=== PATIENT | male | born 1965 | race Native Hawaiian/Other Pacific Islander ===

== ENCOUNTER 2020-01-04 20:00 | Emergency (ER) | payer OTHER ==
[~2020-01-04] VITALS: Ht 167.6 cm; Wt 84.8 kg
[2020-01-04 20:27] LABS: PLATELET COUNT 261 K/uL (142-355)
[2020-01-04 20:51] LABS: POTASSIUM 3.7 mmol/L (3.6-5.2)
[2020-01-04 22:08] VITALS: BP 112/77; TEMP 98.1
[2020-01-04] MEDS ORDERED: EUTHYROX88 MCG PO (23:37)
[2020-01-04] MEDS ORDERED: CLOZAPINE100 MG PO (23:41)
[2020-01-04] MEDS ORDERED: CLOZAPINE ODT150 MG PO (23:45)
[2020-01-04] MEDS ORDERED: DAILY VITE PO (23:47)
[2020-01-04] MEDS ORDERED: FURO20TA67 PO (23:49)
[2020-01-04] MEDS ORDERED: DOCU100C10 PO (23:54)
[2020-01-04] MEDS ORDERED: LORA0.5T17 PO (23:58)
[2020-01-05] MEDS ORDERED: PROPRANOLOL20 MG PO (00:02)
[2020-01-05] MEDS ORDERED: XARELTO20 MG PO ×2 (00:05→00:26)
[2020-01-05] MEDS ORDERED: FERROUS SULF325 M1 PO (00:39)
[2020-01-05] MEDS ORDERED: LAXATIVE5 M1 PO (01:16)
[2020-01-05] MEDS ORDERED: BISACODYL LAXAT10 MG RE (01:19)
[2020-01-05] MEDS ORDERED: 24HR ALLERGY R180 MG PO (01:22)
[2020-01-05] MEDS ORDERED: MAGNSUS68 PO (01:25)
[2020-01-05] MEDS ORDERED: TYLENOL325 MG PO (01:28)
[2020-01-05] MEDS ORDERED: GERI-LANTA PO (01:33)
[2020-01-05] MEDS ORDERED: PROMETHAZINE25 MG/M2 INJ (01:43)
[2020-01-05] MEDS ORDERED: BENADRYL A12.5 MG/5 PO (01:49)
[2020-01-05] MEDS ORDERED: SILTUSSIN DM PO (01:57)
[2020-01-05] MEDS ORDERED: KAOPECTATE262 MG/15 PO (02:05)
[2020-01-05] MEDS ORDERED: FLEET ENEMA RE (02:09)
[2020-01-05] MEDS ORDERED: GLUCAGEN HYPOKIT1 MG INJ (02:13)
[2020-01-05] MEDS ORDERED: GLUCOSE GEL PO (02:20)
[2020-01-05] MEDS ORDERED: OXYGEN (02:24)
[2020-01-05] MEDS ORDERED: MAGNESIUM HYDROXIDE (02:32)
[2020-01-05] MEDS ORDERED: MINERAL OIL (02:32)
[2020-01-05] MEDS ORDERED: SOAP SUDS ENEMA (02:35)
== END 2020-01-04 22:09 | disposition other institution (70) ==
LOC: ED 20:00
PROVIDERS: Emergency Medicine
DX: F28 Other psychotic disorder not due to a substance or known physiological condition (principal); Z11.59 Encounter for screening for other viral diseases; Z04.6 Encounter for general psychiatric examination, requested by authority
CPT/HCPCS: 80053; 81000; 85027; 87635; 93005; 99283; U0003